=== PATIENT | male | born 1970 | race Caucasian/White ===

== ENCOUNTER 2017-10-06 14:26 | Observation (INO) ==
[2017-10-06] MEDS ORDERED: Aspirin 81 MG TAB.CHEW PO ONE (14:32)
[2017-10-06 15:13] LABS: Basophils # 0.1 K/mcL (0.0-0.2); Basophils % 0.8 %; Eosinophils # 0.4 K/mcL (0.0-0.6); Hematocrit 47.2 % (37.5-50.1); Hemoglobin 16.3 g/dL (12.9-16.9); Immature Granulocytes % 0.3 % (0-4); Lymphocytes % 20.2 %; Mean Corpuscular HGB Conc 34.5 g/dL (31.6-35.5); Mean Corpuscular Hemoglobin 31.2 pg (28.0-33.3); Mean Corpuscular Volume 90.2 fL (83.0-100.0); Mean Platelet Volume 11.1 fL (9.4-12.4); Monocytes % 10.2 %; Neutrophils # 6.5 K/mcL (1.6-8.9); Platelet Count 275 K/mcL (140-400); Red Blood Count 5.23 M/mcL (4.19-5.50); Red Cell Distribution Width 13.3 % (11.5-14.5); Segmented Neutrophils % 64.5 %
--- NOTE | 2017-10-06 15:26 | Emergency Department Note ---
Disposition Clinical Impression: Chest pain Qualifiers: Chest pain type: unspecified Qualified Code(s): R07.9 - Chest pain, unspecified Disposition: Admitted As Inpatient Condition: Fair Time of Disposition: 16:28 Chest Pain HPI - General Chief Complaint: ED Chest Pain Stated Complaint: CP Time Seen by Provider: 10/06/17 14:32 Source: patient Limitations: no limitations Vital Signs Reviewed: Yes Nursing Notes Reviewed: Yes - History of Present Illness HPI Narrative: 47-year-old male with past medical history of hypertension, untreated hyperlipidemia, Obesity BMI of 45, presents emergency department complaining of non-exertional left-sided chest pain that began prior to presentation. He describes it as sharp, stabbing, colicky. His chest pain lasted for about 1.5 hours. It was 5/10 at its worst. He denies radiation of the pain and has not used any treatments for his current symptoms. He also denies any shortness of breath, swelling, calf pain, or palpitations. He takes Zestoretic 10-12.5 at home for his hypertension. He has a history of GERD well-controlled on omeprazole and renal cell cancer with partial nephrectomy performed approximately 2 years ago. Patient tells me he recently had follow-up imaging that did not showed any recurrence of disease Severity scale (1-10): 5 - Related Data Home Medications Medication Instructions Recorded Confirmed Albuterol Sulfate [Ventolin Hfa] 2 puff IH Q4H PRN 09/11/15 09/11/15 LORazepam [Ativan] 1 mg PO HS 09/11/15 09/11/15 Lisinopril [Zestril] 40 mg PO DAILY 09/11/15 09/11/15 Naproxen Sodium [Aleve] 220 mg PO DAILY 09/11/15 09/11/15 Omeprazole Magnesium [Prilosec Otc] 20 mg PO DAILY 09/11/15 09/11/15 Testosterone Cypionate [Testone 200 mg IM Q2W 09/11/15 09/11/15 Cik] hydroCHLOROthiazide 12.5 mg PO DAILY 09/11/15 09/11/15 [Hydrochlorothiazide] Previous Rx's Medication Instructions Recorded Hyoscyamine SL [Levsin Sl] 0.125 mg SL Q4HR PRN #30 tab.subl 09/11/15 Oxycodone HCl/Acetaminophen 1 each PO Q4H PRN #15 tablet 09/11/15 [Percocet 5-325 mg Tablet] Phenazopyridine HCl [Pyridium] 200 mg PO TIDAC PRN #15 tab 09/11/15 OxyCODONE/APAP 5/325 [Percocet 1 each PO Q6HR PRN #30 tablet 09/12/16 5/325 MG] Allergies Allergy/AdvReac Type Severity Reaction Status Date / Time No Known Allergies Allergy Verified 10/06/17 14:27 Constitutional: Denies: fever, chills, weakness Eyes: Denies: eye pain, eye discharge, vision change ENT ED: Denies: ear pain, throat pain, dental pain, hearing loss, epistaxis, congestion, dysphagia Cardiovascular: Reports: chest pain. Denies: palpitations, dyspnea on exertion , edema, syncope Respiratory: Denies: cough, dyspnea, wheezes, hemoptysis, stridor Gastrointestinal: Reports: diarrhea, constipation (Patient has a history of irritable bowel syndrome, his symptoms are currently unchanged from baseline). Denies: abdominal pain, nausea, vomiting, hematemesis, melena, hematochezia Genitourinary: Denies: urgency, dysuria, frequency, hematuria Integumentary: Denies: rash, abrasion, lesions Neurological: Denies: headache, weakness, numbness, paresthesias, confusion, abnormal gait, vertigo Chest Pain PMH - Past Medical History Medical history: Reports: asthma, hypertension, kidney stones, other Surgical history: Reports: other Psychiatric history: Reports: anxiety - Social History Smoking Status: Never smoker Alcohol use: Reports: rarely Drug use: Reports: none Physical Exam - General Limitations: no limitations General appearance: alert, in no apparent distress - Head Head exam: atraumatic, normocephalic, normal inspection - Eye Eye exam: Present: normal appearance, PERRL, EOMI - ENT ENT exam: normal exam, normal oropharynx, mucous membranes moist - Neck Neck exam: Present: normal inspection, full ROM, trachea midline - Chest Chest inspection: Present: normal inspection, symmetric chest wall rise - Respiratory Respiratory exam: Present: normal lung sounds bilaterally. Absent: respiratory distress - Cardiovascular Cardiovascular exam: Present: regular rate, normal rhythm, normal heart sounds - Abdominal Exam Abdominal exam: Present: soft, Non-Tender. Absent: tenderness, distention, guarding, rebound, rigidity - Extremities Exam Extremities exam: Present: normal inspection, full ROM, other (No is were). Absent: tenderness, pedal edema - Back Exam Back exam: Present: normal inspection, full ROM. Absent: tenderness - Neurological Exam Neurological exam: Present: alert, oriented X3 Course Course Narrative: Patient was seen and evaluated at bedside and is currently in no distress Vital Signs Temperature 97.7 F 10/06/17 14:27 Pulse Rate 88 10/06/17 14:27 Respiratory Rate 24 10/06/17 14:27 Blood Pressure 171/110 10/06/17 14:27 O2 Sat by Pulse Oximetry 95 10/06/17 14:27 Temperature 98 F 10/06/17 14:43 Pulse Rate 88 10/06/17 14:43 Respiratory Rate 24 10/06/17 14:43 Blood Pressure 171/110 10/06/17 14:43 O2 Sat by Pulse Oximetry 96 10/06/17 14:43 Oxygen Delivery Oxygen Delivery Room Air Chest Pain - MDM Narrative Medical decision making narrative: We will initiate cardiac workup - Lab Data Lab results reviewed: Yes I reviewed the patient's lab results. - Radiology Data Radiology results reviewed: Yes I reviewed the patient's radiology results. - EKG Data EKG attestation: Yes I reviewed and interpreted this EKG. EKG results narrative: Normal sinus rhythm with a rate of 75 bpm. GA interval 142 ms, QRS duration 91 ms, QT 361 ms, QTC 390 ms, normal axes, no ST elevation or depression, no T- wave abnormalities Heart Score - Score History: Moderately Suspicious EKG: Normal Age: 45-65 Risk Factors: Equal/Greater than 3 risk factor or history of atherosclerotic disease Troponin: Less than normal limit HEART Score Total: 4
[2017-10-06 15:37] LABS: Troponin I < 0.03 ng/mL (< 0.04)
[2017-10-06 15:38] LABS: BUN/Creatinine Ratio 13 (6-26); Blood Urea Nitrogen 13 mg/dL (6-20); Calcium 9.4 mg/dL (8.6-10.3); Carbon Dioxide 26 mEq/L (23-29); Chloride 102 mEq/L (98-107); Glucose 84 mg/dL (70-105); Osmolality,Calculated 283 (280-300); Potassium 3.8 mEq/L (3.5-5.1); Sodium 137 mEq/L (136-145); eGFR For African Americans > 60 (> 60); eGFR For Non-African Americans > 60 (> 60)
[2017-10-06 15:42] LABS: Prothrombin Time 11.2 Seconds (9.4-12.1)
[2017-10-06 15:44] LABS: Activated Partial Thrombo Time 36.9 Seconds (26.0-36.0)
--- NOTE | 2017-10-06 16:29 | Emergency Department Note ---
Disposition Clinical Impression: Chest pain Qualifiers: Chest pain type: unspecified Qualified Code(s): R07.9 - Chest pain, unspecified Disposition: Admitted As Inpatient Condition: Fair General Adult HPI - General Chief complaint: ED Chest Pain Stated complaint: CP Time Seen by Provider: 10/06/17 14:32 Source: patient Limitations: no limitations - History of Present Illness Pain Scale: 5 - Related Data Home Medications Medication Instructions Recorded Confirmed Albuterol Sulfate [Ventolin Hfa] 2 puff IH Q4H PRN 09/11/15 10/06/17 Fluticasone Propionate Nasal 1 spr NS DAILY PRN 10/06/17 10/06/17 [Flonase] Lisinopril-HCTZ 10-12.5 [Prinzide 1 tab PO DAILY 10/06/17 10/06/17 10-12.5] Allergies Allergy/AdvReac Type Severity Reaction Status Date / Time No Known Allergies Allergy Verified 10/06/17 14:27 Constitutional: Denies: fever, chills, weakness Eyes: Denies: eye pain, eye discharge, vision change ENT ED: Denies: ear pain, throat pain, dental pain, hearing loss, epistaxis, congestion, dysphagia Cardiovascular: Reports: chest pain. Denies: palpitations, dyspnea on exertion , edema, syncope Respiratory: Denies: cough, dyspnea, wheezes, hemoptysis, stridor Gastrointestinal: Reports: diarrhea, constipation (Patient has a history of irritable bowel syndrome, his symptoms are currently unchanged from baseline). Denies: abdominal pain, nausea, vomiting, hematemesis, melena, hematochezia Genitourinary: Denies: urgency, dysuria, frequency, hematuria Integumentary: Denies: rash, abrasion, lesions Neurological: Denies: headache, weakness, numbness, paresthesias, confusion, abnormal gait, vertigo Past Medical History - Past Medical History Medical history: Reports: asthma, hypertension, kidney stones, other Surgical history: Reports: other Psychiatric history: Reports: anxiety - Social History Smoking Status: Never smoker Smokeless Tobacco Status: No Alcohol use: Reports: rarely Drug use: Reports: none Physical Exam - General Limitations: no limitations General appearance: alert, in no apparent distress Course Vital Signs Temperature 97.7 F 10/06/17 14:27 Pulse Rate 88 10/06/17 14:27 Respiratory Rate 24 10/06/17 14:27 Blood Pressure 171/110 10/06/17 14:27 O2 Sat by Pulse Oximetry 95 10/06/17 14:27 Temperature 98.3 F 10/06/17 18:06 Pulse Rate 71 10/06/17 18:06 Respiratory Rate 17 10/06/17 18:06 Blood Pressure 136/83 10/06/17 18:06 O2 Sat by Pulse Oximetry 94 10/06/17 18:06 Oxygen Delivery Oxygen Delivery Room Air Medical Decision Making - Lab Data Result diagrams: 10/06/17 14:42 10/06/17 14:42 Lab Results 10/06/17 10/06/17 10/06/17 Range/Units 14:32 14:42 14:42 WBC 10.0 (4.3-11.1) K/mcL RBC 5.23 (4.19-5.50) M/mcL Hgb 16.3 (12.9-16.9) g/dL Hct 47.2 (37.5-50.1) % MCV 90.2 (83.0-100.0) fL MCH 31.2 (28.0-33.3) pg MCHC 34.5 (31.6-35.5) g/dL RDW 13.3 (11.5-14.5) % Plt Count 275 (140-400) K/mcL MPV 11.1 (9.4-12.4) fL Immature Gran % 0.3 (0-4) % Seg Neutrophils % 64.5 % Lymphocytes % 20.2 % Monocytes % 10.2 % Eosinophils % 4.0 % Basophils % 0.8 % Neutrophils # 6.5 (1.6-8.9) K/mcL Lymphocytes # 2.0 (0.6-4.6) K/mcL Monocytes # 1.0 (0.0-1.3) K/mcL Eosinophils # 0.4 (0.0-0.6) K/mcL Basophils # 0.1 (0.0-0.2) K/mcL PT 11.2 (9.4-12.1) Seconds INR 1.0 APTT 36.9 H (26.0-36.0) Seconds D-Dimer 413 (0-500) ng/mLFEU Sodium 137 (136-145) mEq/L Potassium 3.8 (3.5-5.1) mEq/L Chloride 102 (98-107) mEq/L Carbon Dioxide 26 (23-29) mEq/L BUN 13 (6-20) mg/dL Creatinine 1.03 (0.70-1.30) mg/dL Est GFR ( Amer) > 60 (> 60) Est GFR (Non-Af Amer) > 60 (> 60) BUN/Creatinine Ratio 13 (6-26) Glucose 84 (70-105) mg/dL Calculated Osmolality 283 (280-300) Calcium 9.4 (8.6-10.3) mg/dL Troponin I < 0.03 (< 0.04) ng/mL Attestation Statement - Attestation Attestation: I examined this patient and my medical decision-making was reviewed with the Resident Physician. I agree with the documented findings, disposition and treatment plan as described except to the extent set forth below. 47-year-old had about an hours worth of left-sided chest pain. The patient does have risk factors including hypertension, hypercholesterolemia, family history. Physical examination the lungs are clear cardiovascular exams unremarkable. EKG shows no acute changes initial troponin is negative patient will be admitted for further evaluation and treatment.
--- NOTE | 2017-10-06 16:55 | Internal Med History&Physical ---
Date of Encounter: 10/06/17 Time of Encounter: 16:50 Internal Medicine - H&P: HPI Chief complaint: Chest pain Admitted From: Emergency Dept Plans for Post Hospital Care: Home History of present illness: Mr. Montanez is a 47 year old male who history of obesity, hypertension, hyperlipidemia but not on meds, who presents to the ED with complaints of chest pain that started around 11 PM and lasted for about 1.5 hours. He describes it as left-sided with no radiation. Associated shortness of breath and feeling clammy. Never had a stress test. Never had cardiac workup. It went away on its own. No aggravating factors. The patient's father of an ND in his 40s. In the ED the patient was he was stable. EKG with no acute ST or T-wave changes. The patient was given aspirin 324 milligrams. Laboratory workup was unremarkable including D dimers and troponins less than 0.03. Denies any fever , chills, nausea, vomiting, abdominal pain, diarrhea, constipation, urinary symptoms, or neurological symptoms. Past Med Surg Social Fam HX - Past Medical History Medical history: asthma, hypertension, kidney stones, other Additional medical history: HTN. Ureteral stone with hydronephrosis. renal mass. MISTY. Sleep apnea. IBS. VIT D DEF. LOW TESTOSTERONE. INCISIONAL HERNIA. RENAL CELL CARCINOMA Psychiatric history: anxiety - Past Surgical History Surgical History: other Additional surgical history: colonoscopy, PARTIAL NEPHRECTOMY 11/23 @ [facility] - Social History Smoking Status: Never smoker Smokeless Tobacco Status: No Alcohol use: rarely Drug use: none Internal Medicine - H&P: Meds Albuterol Sulfate [Ventolin Hfa] 2 puff IH Q4H PRN 09/11/15 [History] Fluticasone Propionate Nasal [Flonase] 1 spr NS DAILY PRN 10/06/17 [History] Lisinopril-HCTZ 10-12.5 [Prinzide 10-12.5] 1 tab PO DAILY 10/06/17 [History] 3 Allergy/AdvReac Type Severity Reaction Status Date / Time No Known Allergies Allergy Verified 10/06/17 14:27 All Systems PM: A 10-system review of systems was performed and is negative for pertinent findings except as documented above in the HPI. Review of systems: All systems reviewed are negative except for as mentioned above - Constitutional Vitals: Temp Pulse Resp BP Pulse Ox 98 F 88 24 171/110 96 10/06/17 14:43 10/06/17 14:43 10/06/17 14:43 10/06/17 14:43 10/06/17 14:43 Exam: GEN: NAD HEENT: AT, NC, No cyanosis, oral mucosa is moist, No JVD Lymphatics: No lymphadenoapthy Eyes: Extrocular muscles intact, anicteric CVS:RRR. S1, S2, No m/r/g RESP: CTAB ABD: Soft, NT, ND, +BS EXT: No edema, No rashes, 2+ DP NEURO: Nonfocal, CN II-XII intact, No focal motor or sensory deficits Psych: Cooperative, Not anxious or depressed Internal Med - H&P Results - Labs CBC & Chem 7: 10/06/17 14:42 10/06/17 14:42 - Assessment and plan (1) Chest pain Current Visit: Yes Status: Acute Assessment and plan: Admit to telemetry. Risk factor includes hypertension, obesity, hyperlipidemia , and family history. We will trend cardiac enzymes. Check lipid panel A1c. Stress test in the morning. Nothing by mouth after midnight. Qualifiers: Chest pain type: unspecified Qualified Code(s): R07.9 - Chest pain, unspecified (2) HTN (hypertension) Current Visit: Yes Status: Acute Assessment and plan: Resume home antihypertensives Qualifiers: Hypertension type: essential hypertension Qualified Code(s): I10 - Essential (primary) hypertension (3) DVT prophylaxis Current Visit: Yes Status: Acute Assessment and plan: Heparin subcutaneous - Time Spent With Patient Total time spent is greater than 50% in coordination of care (as documented) at patient's floor/unit and/or counseling patient:
[2017-10-06] MEDS ORDERED: Nitroglycerin 0.4 MG TAB.SUBL SL PRN (16:56)
[2017-10-06] MEDS ORDERED: Naloxone 0.4 MG/ML INJ IVP PRN (16:56)
[2017-10-06] MEDS ORDERED: Acetaminophen 325 MG TABLET PO PRN (16:56)
[2017-10-06] MEDS ORDERED: Fluticasone Propionate Nasal 50 MCG/SPRAY BOTTLE NS PRN (16:59)
[2017-10-06] MEDS: *HR* Heparin 5,000 UNIT/ML VIAL SQ SCH (21:16)
[2017-10-07 04:15] LABS: Chol/HDL Ratio 5.4 (0-4.9)
[2017-10-07 04:29] LABS: Thyroid Stimulating Hormone 1.577 mcIU/mL (0.340-5.600)
[2017-10-07] MEDS: *HR* Heparin 5,000 UNIT/ML VIAL SQ SCH (05:19)
[2017-10-07] MEDS ORDERED: Regadenoson 0.4 MG/5 ML SYRINGE IVP ONE (06:00)
[2017-10-07 12:07] VITALS: BP 109/74
--- NOTE | 2017-10-07 15:42 | Event Note ---
Date of Encounter: 10/07/17 Time of Encounter: 14:00 Patient was admitted for chest pain from emergency department on 10/06/2017. Hx of hypertension, hyperlipidemia , morbid obesity. He was not currently on any medications at home. Today he had completed the first step of 2 day stress test. Second step was scheduled to be completed on MondayOctober 09. Today on rounding patient had requested to be discharged today, and return on MondayOctober 09 for second part of testing. Discussed with patient potential complications of early discharge, including but not limited to , from cardiac disease and no medications for hypertension, and hyperlipidemia. Informed patient that his testing would have to be a restart, and that he would not be able to complete the second part of stress testing on Monday if he leaves AMA. Verbalized understanding, and verbalizes wants to leave AMA.
[2017-10-08 08:17] LABS: Estimated Average Glucose 103 mg/dl; Hemoglobin A1C 5.2 %
--- NOTE | 2017-10-09 17:43 | Electrocardiograph Report ---
[address] [address] Test Date: 2017-10-06 Pat Name: Leo Montanez Department: 104 Room: [facility] Gender: M Torped[employer] Shooter: JOSETTE : 1970 Requested By: Antwan Raymond Order Number: [id number] Reading MD: Blu Bloom Measurements Intervals [place] Rate: 75 P: 33 NV: 143 QRS: -8 QRSD: 91 T: 10 QT: 361 QTc: 390 Interpretive Statements SINUS RHYTHM Electronically Signed On 10-09-2017 17:41:35 EDT by Blu Bloom
== END 2017-10-07 13:17 | disposition left against medical advice (07) ==
LOC: 3BNU 14:26 → EMEROO 14:26 → 3BNU 17:41
PROVIDERS: ADMIT Internal Medicine; ATTEND Internal Medicine